=== PATIENT | male | born 1940 | race Caucasian/White ===

== ENCOUNTER 2025-04-09 11:46 | Outpatient (REF) | payer MEDICARE, SELFPAY ==
[2025-04-09 13:23] LABS: MANUAL DIFF FLAG NO
--- OUTSIDE RECORDS SUMMARY | 2025-04-09 13:31 | XMS_ITS | Data Portability ---
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 REVIEW OF PRIOR EXTERNAL NOTES/RESULTS, ORDERING OF TEST(S) CATEGORY 2. 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) MDM MODERATE MUST MEET 2 OUT OF 3 ELEMENTS: PROBLEMS, DATA OR RISK ELEMENT 1: PROBLEMS ADDRESSED 1 OR MORE CHRONIC ILLNESS WITH EXACERBATION OR 2 OR MORE STABLE CHRONIC ILLNESSES OR 1 UNDIAGNOSED NEW PROBLEM OR 1 ACUTE ILLNESS W/SYMPTOMS OR 1 ACUTE COMPLICATED INJURY ELEMENT 2: DATA MUST MEET 1 OF 3 CATEGORIES CATEGORY 1: REVIEW OF PRIOR EXTERNAL NOTES, REVIEW OF RESULTS, ORDERING OF EACH TEST, ASSESSMENT REQUIRING INDEPENDENT HISTORIAN OR CATEGORY 2: INDEPENDENT INTERPRETATION OF TESTS BY ANOTHER PHYSICIAN OR SPECIALIST OR CATEGORY 3: DISCUSSION OF MGT OR TEST INTERPRETATION W/EXTERNAL PHYSICIAN OR SPECIALIST ELEMENT 3: RISK RISK OF COMPLICATIONS AND/OR MORBIDITY OR MORTALITY OF PATIENT MANAGEMENT PROVIDER MUST THOROUGHLY DOCUMENT EACH ELEMENT THAT IS COVERED Not available 04/09/2025 11:30:43 Plan of Treatment Reminders Order Date Submit Date Provider Last Modified By Organization Details Last Modified Time Details Appointments Pre-Op 2024 11:00A M DR IBARRA Not available Not available Not available Lab CMP, serum or plasma 2024 025 [facility], [address] [place] [address], [id number], 04/09/2025 11:39:30 lipid panel, serum 2024 025 [facility], [address] [place] [address], [id number], 04/09/2025 11:39:30 CBC w/ auto diff 2024 025 [facility], [address] [place] [address], [id number], 04/09/2025 11:39:30 PSA, serum or plasma 2024 025 [facility], [address] [place] [address], [id number], 04/09/2025 11:39:30 TSH, serum or plasma 2024 025 [facility], [address] [place] [address], [address], 04/09/2025 11:39:30 CMP, serum or plasma 2023 024 [facility], [address] [place] [address], [id number], 11/22/2023 11:18:31 CBC 2023 024 [facility], [address] [place] [address], [address], 11/22/2023 11:18:30 lipid panel, serum 2023 024 [facility], [address] [place] [address], [place], [address], 11/22/2023 11:18:30 TSH + free T4, serum 2023 024 [facility], [address] [place] [address], [place], [address], 11/22/2023 11:18:31 Referral None recorded. Procedures None recorded. Surgeries None recorded. Imaging XR, lumbosacr al spine, 2 or 3 view 2022 023 [email or web address] Not available 09/11/2023 08:37:20 Medication Orders tramadol 50 mg tablet 2023 024 [email or web address] [facility] #[id number], [address], [place], [id number], 04/09/2025 10:56:48 meloxicam 15 mg tablet 2023 024 [facility] #55391, [address], [place], [id number], 04/06/2024 14:14:36 Medrol (Yovanny) 4 mg tablets in a dose pack 2022 024 [facility] #60149, [address], [place], [id number], 07/17/2024 09:30:36 tizanidin e 2 mg tablet 2022 024 [facility] #51940, [address], [place], [id number], 07/17/2024 09:30:48 Patient TargetsNo targets recorded. Patient Instructions Encounter Date Encounter Id Patient Instructions Last Modified By Organization Details Last Modified Time 04/09/2025 [id number] hypothyroidism: care instructions Not available 04/09/2025 11:38:05 Reason for Referral None Reported. Results Created Date Observation Date Name Description Value Unit Range Abnormal Flag Note LastModifiedBy Organization Detail LastModifiedTime 08/28/20 23 08/28/2023 XR, lumbo sacra l spine , 2 or 3 view No observ ation record ed. [email or web address] [address], [address], 09/04/2023 09:07:16 10/18/20 23 10/14/2023 MRI, lumba r spine , w/o contr ast No observ ation record ed. [facility] [address] [place] [address], [address], 10/20/2023 16:24:11 03/06/20 24 03/05/2024 XR, hip, unila teral , 2 or 3 view No observ ation record ed. [facility] [address] [place] [address], [address], 03/10/2024 20:59:05 Result Notes None recorded. Problems Name Problem SNOMED Code Status Onset Date Resolution Date Notes Provider Name and Address Organization Details Recorded Time [place] us polyp of colon 739188799 Active 2016 due for repeat scope 2021 Not Available [facility] 13:18:10 Acute conjuncti vitis 32500760 Active 2017 Not Available [facility] 13:18:10 Prostate specific antigen above reference range 339048483 Active 2019 Not Available [facility] 13:18:10 Lumbago with sciatica 047634438 Active 2022 CECI DONOHUE [address] [place], [address], [facility] 3 12:05:04 Intractab le low back pain 52493044881 365302 Active 2022 Refugio Ibarra DO [address] [place], [address], [place] [facility] 3 22:56:46 Degenerat daina lumbar spinal stenosis 592516575 Active 2022 Refugio Ibarra DO [address] [place] [address], [address], [facility] 3 16:24:56 Pain of left hip joint 54120912098 9100 Active 2023 Refugio Ibarra, DO [address] [place] [address], [address], [facility] 4 13:55:31 Osteoarth ritis of left hip joint 13805170916 9108 Active 2023 Refugio Ibarra, DO [address] [place] [address], [address], [facility] 4 20:59:58 Impacted cerumen of bilateral ears 60324977411 48314 Active 2023 CECI DONOHUE [address] [place] [address], [address], [facility] 4 14:54:04 Essential hypertens ion 81888647 Active 2017 Not Available [facility] 13:18:10 Hypothyro idism 43332390 Active 2017 Not Available [facility] 13:18:10 Hyperlipi demia 08298464 Active 2017 Not Available [facility] 13:18:10 Diverticu losis of sigmoid colon 547861327 Active 2017 Not Available [facility] 13:18:10 Benign prostatic hyperplas ia 200269503 Active 2017 Not Available [facility] 13:18:10 Basal cell carcinoma of skin 468428977 Active 2017 Not Available [facility] 13:18:10 Gout 62159472 Active 2017 Not Available [facility] 13:18:10 Problem Notes None recorded. Procedures Surgical History Date Name Laterality Status Provider Name and Address Organization Details Recorded Time 4 Cerumen Removal completed CECI DONOHUE [address] [place] [address], [phone], [facility] 06/21/2024 14:53:53 Imaging Results None recorded. Procedure Notes None recorded. Medical Equipment None Reported. Allergies Allergen ID Allergen Name Allergen Category Reaction Reaction Severity Criticality Documentation Date Start Date Code Code System Note Provider Name and Address Organization Details Recorded Time 997 ciproflox acin medicatio n Not available Not available Not available 02/19/2018 2551 RxNorm [facility]fec [facility] 8 10:53:37 Medications Name Sig Start Date Stop Date Status Note LastModified by Organization Details LastModified Time levothyroxi ne sodium 100 mcg tabs 07/01 completed Not Available Not Available Not Available tamsulosin hydrochlori de 0.4 mg caps 07/01 completed Not Available Not Available Not Available losartan 50 mg tablet TAKE 1 TABLET BY MOUTH EVERY DAY 03/24 completed Not Available Not Available Not Available cyclobenzap rine 10 mg tablet Take 1 tablet every day by oral route at bedtime. 10/05 completed Not Available Not Available Not Available prednisone 10 mg tablet take 4 tabs x 2 days, take 3 tabs x 2 days, take 2 tabs x 2 days, take 1 tab x 2 days 04/06 completed Not Available Not Available Not Available doxycycline hyclate 100 mg capsule TAKE 1 CAPSULE BY MOUTH TWICE DAILY FOR 5 DAYS WITH FOOD AND WATER 07/17 completed Not Available Not Available Not Available tizanidine 2 mg tablet TAKE 1 TABLET BY MOUTH TWICE DAILY FOR 7 DAYS NEEDED 07/17 completed Not Available Not Available Not Available valacyclovi r 1 gram tablet 06/27 completed Not Available Not Available Not Available meloxicam 15 mg tablet TAKE 1 TABLET BY MOUTH EVERY DAY NEEDED 04/06 completed Not Available Not Available Not Available lisinopril 20 mg tablet 04/23 completed Not Available Not Available Not Available fluorouraci l 5 % topical cream 10/05 completed Not Available Not Available Not Available acetaminoph en 300 mg-codeine 30 mg tablet Take 1 tablet every 6 hours by oral route as needed for 7 days. 01/13 completed Not Available Not Available Not Available prochlorper azine maleate 10 mg tablet 02/19 completed Not Available Not Available Not Available ciprofloxac in 500 mg tablet 02/19 completed Not Available Not Available Not Available hydrocodone 10 mg-acetamin ophen 325 mg tablet TAKE 1 TABLET BY MOUTH FOUR TIMES DAILY FOR 7 DAYS NEEDED 04/08 completed Not Available Not Available Not Available tramadol 50 mg tablet TAKE 1 TABLET BY MOUTH THREE TIMES DAILY NEEDED 04/09 completed Not Available Not Available Not Available TobraDex 0.3 %-0.1 % eye ointment APPLY A SMALL AMOUNT INTO THE CONJUNCTI TALYA SAC(S) IN AFFECTED EYE(S) BY OPHTHALMI C ROUTE 2 TIMES PER DAY 10/02 completed Not Available Not Available Not Available levothyroxi ne 100 mcg tablet TAKE 1 TABLET BY MOUTH EVERY MORNING ON AN EMPTY STOMACH active Not Available Not Available No t Available levothyroxi ne 88 mcg tablet 02/19 completed Not Available Not Available Not Available gentamicin 0.3 % eye drops INSTILL 1 DROP INTO AFFECTED EYES BY OPHTHALMI C ROUTE EVERY 4 HOURS 07/04 completed Not Available Not Available Not Available tamsulosin 0.4 mg capsule TAKE 1 CAPSULE BY MOUTH EVERY DAY active Not Available Not Available No t Available Tylenol 500 mg tablet Take 2 tablets every 6 hours by oral route. active Not Available Not Available No t Available cephalexin 500 mg capsule 02/19 completed Not Available Not Available Not Available simvastatin 20 mg tablet TAKE 1 TABLET BY MOUTH EVERY DAY active Not Available Not Available No t Available indomethaci n 50 mg capsule 07/04 completed Not Available Not Available Not Available mupirocin 2 % topical ointment APPLY TOPICALLY IN EACH NOSTRIL TWICE DAILY FOR 5 DAYS 08/25 completed Not Available Not Available Not Available methylpredn isolone 4 mg tablets in a dose pack FOLLOW PACKAGE DIRECTION S 07/17 completed Not Available Not Available Not Available losartan 50 mg-hydrochl orothiazide 12.5 mg tablet TAKE 1 TABLET BY MOUTH EVERY DAY active Not Available Not Available No t Available colchicine 0.6 mg tablet TAKE 2 TABLETS BY MOUTH ONCE THEN TAKE 1 TABLET 1 HOUR LATER, PRN GOUT FLARE 10/02 completed Not Available Not Available Not Available celecoxib 100 mg capsule 08/25 completed Not Available Not Available Not Available ketoconazol e 2 % topical cream APPLY TO THE AFFECTED AREA(S) BY TOPICAL ROUTE twice DAILY 07/22 completed Not Available Not Available Not Available fluticasone propionate 50 mcg/actuati on nasal spray,suspe nsion active Not Available Not Available Not Available naproxen 500 mg tablet 10/05 completed Not Available Not Available Not Available amoxicillin 875 mg-melo m clavulanate 125 mg tablet 02/19 completed Not Available Not Available Not Available oxycodone 5 mg tablet TAKE 1 TABLET BY MOUTH EVERY 6 HOURS NEEDED 05/31 completed Not Available Not Available Not Available neomycin 3.5 mg/g-polymy david B 10,000 unit/g-dexa meth 0.1 % eye oint APPLY 1 THIN LAYER IN LEFT EYE THREE TIMES DAILY 04/09 completed Not Available Not Available Not Available biotin 10,000mcg One tablet once a day 04/23 completed Not Available Not Available Not Available Tylenol prn 03/30 completed Not Available Not Available Not Available Centrum Silver active Not Available Not Available Not Available ProAir HFA 90 mcg/actuati on aerosol inhaler Inhale 2 puffs every 4 hours by inhalatio n route as needed for 16 days. 10/02 completed Not Available Not Available Not Available diclofenac 1 % topical gel APPLY 2 GRAMS TOPICALLY TO THE AFFECTED AREA FOUR TIMES DAILY 10/05 completed Not Available Not Available Not Available GaviLyte-G 236 gram-22.74 gram-6.74 gram-5.86 gram oral solution 02/19 completed Not Available Not Available Not Available Shingrix (PF) 50 mcg/0.5 mL intramuscul ar suspension, kit 01/13 completed Not Available Not Available Not Available Fluzone High-Dose Quad 2019- (PF) 240 mcg/0.7 mL IM syringe ADM 0.7ML IM UTD 03/24 completed Not Available Not Available Not Available BinaxNOW COVID-19 Ag Self Test kit TEST DIRECTED TODAY 12/12 completed Not Available Not Available Not Available Vitals Date Recorded Body height Body mass index (BMI) Body weight Oxygen saturation Oxygen saturation in Arterial blood by Pulse oximetry Heart rate Systolic blood pressure Diastolic blood pressure Provider Name and Address Organization Details Last Updated DateTime 5 172.09 cm 27.5 kg/m2 67229.1 9 g 6 % 6 % 64 /min 122 mm[Hg] 78 mm[Hg] Feilcia Mccordbenjamin [facility] 5 11:01:10 Date Recorded Body height Body mass index (BMI) Body weight Heart rate Oxygen saturation Oxygen saturation in Arterial blood by Pulse oximetry Systolic blood pressure Diastolic blood pressure Provider Name and Address Organization Details Last Updated DateTime 4 172.09 cm 26.7 kg/m2 19680.0 7 g 62 /min 98 % 98 % 118 mm[Hg] 78 mm[Hg] Joshua Hammer [facility] 4 09:31:38 Date Recorded Body height Body mass index (BMI) Body weight Heart rate Oxygen saturation Oxygen saturation in Arterial blood by Pulse oximetry Systolic blood pressure Diastolic blood pressure Provider Name and Address Organization Details Last Updated DateTime 3 172.09 cm 25.4 kg/m2 78759.3 3 g 70 /min 95 % 95 % 112 mm[Hg] 64 mm[Hg] Nemo Guerita [facility] 3 11:53:31 Social History Question Answer Notes LastModified by [email or web address] Details LastModified Time Tobacco Smoking Status Former Smoker Not Available [facility] 09/01/2020 03:36:24 What Is Your Level Of Caffeine Consumption? Occasional 1 Cup Coffee Per Day [id number] Information not available 09/01/2020 What Was The Date Of Your Most Recent Tobacco Screening? 04/09/2025 [email or web address] Information not available 04/09/2025 How Many Years Have You Smoked Tobacco? 8 [id number] Information not available 09/01/2020 Sex: Unknown Functional Status Question Answer Note LastModified by [email or web address] Details LastModified Time Do you or have you ever used any other forms of tobacco or nicotine? No Information not available 03/30/2022 What is your level of alcohol consumption? Occasional [id number] Information not available 09/01/2020 What is your exercise level? Moderate walking daily [id number] Information not available 09/01/2020 Mental Status None recorded. Family History Nothing Reported. Medical History No medical history recorded. Immunizations Vaccine Type Date Status Note Provider Nam e and Address Organization Details Recorded Time Influenza, split virus, quadrivalent, preservative 10/08/20 21 completed Refugio Ibarra, [address] [place], [address], [facility] 08/07/2021 21:17:21 Influenza, split virus, quadrivalent, preservative 07/27/20 18 completed Refugio Ibarra, [address] [place], [address], [facility] 07/28/2018 21:54:03 COVID-19, mRNA, LNP-S, PF, 100 mcg/0.5mL dose or 50 mcg/0.25mL dose 09/06/20 21 [facility] 14:21:32 COVID-19, mRNA, LNP-S, PF, 100 mcg/0.5mL dose or 50 mcg/0.25mL dose 02/08/20 22 [facility] 03/30/2022 14:21:49 Influenza, split virus, quadrivalent, preservative 08/07/20 22 completed HARSH QUIROZ, [place] [address] [place], [address], [facility] 08/09/2022 13:05:45 COVID-19, mRNA, LNP-S, PF, 50 mcg/0.5 mL dose 08/04/20 22 completed Julia Cobian [facility] 12/12/2022 08:01:44 Influenza, split virus, quadrivalent, preservative 08/16/20 19 [facility] 08/17/2019 16:25:33 Pneumococcal conjugate PCV 13 07/30/20 16 completed Cathryn Mukund [facility] [address] [place], [address], [facility] 2018 12:12:02 zoster live 11/13/19 11 completed Cathryn Mukund [facility] [address] [place], [address], [facility] 2018 12:14:45 Tdap 08/21/20 12 completed NACHO Roberto [address] [place], [address], [facility] 2018 12:14:11 pneumococcal polysaccharide PPV23 08/06/20 09 completed NACHO Roberto [address] [place], [address], [facility] 2018 12:14:29 COVID-19, mRNA, LNP-S, PF, 100 mcg/0.5mL dose or 50 mcg/0.25mL dose 12/10/19 21 completed Clarissa vasquez [facility] 03/23/2021 08:52:26 COVID-19, mRNA, LNP-S, PF, 100 mcg/0.5mL dose or 50 mcg/0.25mL dose 01/08/20 21 [facility]/23/2021 08:52:31 Past Encounters Encounter ID Performer Location Encounter Start Date Encounter Closed Date Diagnosis/Indication Diagnosis SNOMED-CT Code Diagnosis ICD10 Code Diagnosis Note [id number] Refugio Ibarra [facility] [address] [place] [address],[place] [address] 02/19/2018 10:43:35 02/19/2018 11:33:11 Hypothyroidism 69383455 E03.9 last checked 18 - WNL Gout 39844729 M10.9 Essential hypertension 61022516 I10 on lisinopril , which can elevate uric acid. will d/c and add alexa hahn [id number] Refugio Ibarra [facility] [address] [place] [address],[place] [address] 04/23/2018 09:21:04 04/23/2018 09:44:22 Hypothyroidism 25432257 E03.9 last checked 18 - WNL Gout 12261861 M10.9 no flares since last visit if uric acid severely elevated will consider adding allopurino l if normal, no further action Essential hypertension 36808198 I10 will controlled on losartan [id number] Refugio Ibarra [facility] [address] [facility],[place] [address] 2018 11:46:47 2018 14:53:52 Essential hypertension 95991720 I10 will controlled on losartan Hypothyroidism 13713171 E03.9 last checked 01/14 - WN has f/u for this 06/2018 Bacterial conjunctivitis 125866029 H10.9 Body mass index 25-29 - overweight 362950844 Z68.27 in setting of normal waist circumfere nce [id number] Refugio Ibarra [facility] [address] [facility], [place] [address] 07/04/2018 08:58:07 07/04/2018 11:37:47 Hypothyroidism 98570276 E03.9 will check tsh in next visit Essential hypertension 57789819 I10 excellent thus far Hyperlipidemia 12771487 E78.00 will order fbw Acute conjunctivitis 537 27046 H10.33 will change gent to pred combo [id number] Refugio Ibarra [facility] [address] [place] [address],[place] [address] 07/09/2018 10:50:52 07/09/2018 11:44:28 Sensation of irritation of eye proper 412523775 H57.8 [id number] Refugio Ibarra [facility] Internal [address],[place] [address] 10/02/2018 09:20:28 10/02/2018 12:01:54 Adult health examination 616331022 Z00.00 Active or passive immunization 445054646 Z23 Essential hypertension 34845287 I10 excellent thus far Tinea pedis 0733033 B35. 3 [id number] Refugio Ibarra [facility] [address] [facility], [place] [address] 12/24/2018 11:39:29 12/24/2018 13:22:14 Low back pain 564602136 M54.5 increase Aleve to 2 tabs BID Trigger fi nger of left hand [id number] 0817672 M65.30 Trigger fi nger of right hand [id number] 6811891 M65.30 [id number] Refugio Ibarra [facility] [address] [facility],[place] [address] 04/10/2019 09:49:45 04/10/2019 10:30:28 Essential hypertension 72448598 I10 excellent thus far Hypothyroidism 75595230 E03.9 will check tsh in next visit Hyperlipidemia 54989533 E78.00 will order fbw Numbness of foot 7489772 00 R20.0 ? if this is tarsal [place] [id number] Refugio Ibarra [facility] [address] [facility],[place] [address] 07/22/2019 13:45:18 07/22/2019 14:30:38 Thoracic back pain 508240643 M54.6 no sx of uti he does have h/o kidney stones on imaging, but no history of passing stones quit smoking 45 years ago after smoking approx 9 years pain isnt reproduced with palpation Essential hypertension 02593155 I10 will controlled on losartan Hypothyroidism 69035117 E03.9 labs normal 04/17 [id number] Refugio Ibarra [facility] [address] [facility],[place] [address] 01/14/2020 09:48:36 01/14/2020 10:17:17 Adult health examination 735498237 Z00.00 Active or passive immunization 741276634 Z23 Hypothyroidism 12269917 E03.9 will check tsh in next visit [id number] Refugio Ibarra [facility] [address] [facility],[place] [address] 07/01/2020 09:10:42 07/01/2020 10:01:20 Essential hypertension 44690072 I10 excellent thus far but having some leg edema Hyperlipidemia 51594276 E78.00 will order fbw Hypothyroidism 87112840 E03.9 will check tsh in next visit Osteoarthr itis of joint of bilateral hands 8805031679 99914 M19.041 will try this med for arthritis on a as needed basis if good day dont take [id number] Refugio Ibarra [facility] [address] [facility],[place] [address] 10/12/2020 08:44:41 10/12/2020 10:27:32 Essential hypertension 27904497 I10 excellent thus far but he will be purchasing a new machine to check at home will call if any elevations persist Hypothyroidism 13354150 E03.9 will check tsh in next visit as his last was excellent Hyperlipidemia 48146239 E78.00 LDL cholestero l is 63 Gout 64677029 M10.9 has been quiet will cont current course uric acid is wnl last lab no outbreaks Prostate s pecific antigen above reference range 947897608 R97.20 has raised psa even more to 19 he will discuss with the urologidst in october 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 and that he will need to consider doing something about this with the urologist [id number] Refugio Ibarra [facility] [address] [facility], [place] [address] 03/24/2021 09:27:07 03/24/2021 10:26:10 Hypothyroidism 74183072 E03.9 will check tsh in next visit as his last was excellent Hyperlipidemia 19150341 E78.00 LDL cholestero l is 63 Essential hypertension 55395162 I10 excellent thus far but he will be purchasing a new machine to check at home will call if any elevations persist Pain in right knee [id number] M25.561 will set up rxr and ortho Idiopathic peripheral neuropathy [id number] G60.9 will set up neuro and NCT [id number] Refugio Ibarra [facility] [address] [facility], [place] [address] 10/05/2021 11:10:47 10/05/2021 16:22:37 Thoracic back pain [id number] M54.6 continue with APAP and take tramadol instead of ibuwill fu with XR Fall W19.XXXA will fu with XR to r/o acute fracture [id number] Refugio Ibarra [facility] Internal Medicine [address] [facility], [place] [address] 03/30/2022 09:53:07 03/30/2022 10:53:27 Active or passive immunization [id number] Z23 patient advised of vaccines due (tdap, shingles) Adult [facility] th examination 476092932 Z00.00 will have lab etc ordered etc Advance care planning 71 9428601 Z71.89 done [id number] Refugio Ibarra [facility] Internal Medicine [address] [place] [address] 12/12/2022 09:35:38 12/12/2022 12:14:03 Pre-surgery evaluation [id number] Z01.818 The patient was seen in the office today for pre-op evaluation . All medical conditions on patient's problem list were addressed and are currently stable, no interventi on needed at this time. Based on history and physical performed, the patient is cleared for surgery. Essential hypertension 37868905 I10 BP is excellentw ell-contro lled on medication [id number] Refugio Ibarra [facility] [address] [place] [address] 05/31/2023 09:45:45 05/31/2023 15:37:42 Active or passive immunization 873164383 Z23 patient advised of vaccines due (tdap, shingles) Adult heal th examination 556367272 Z00.00 will have lab etc ordered etc Essential hypertension 16361585 I10 excellent thus far but he will be purchasing a new machine to check at home will call if any elevations persist Hyperlipidemia 97802672 E78.00 LDL cholestero l is 63 Hypothyroidism 71188341 E03.9 will check tsh in next visit as his last was excellent [id number] Refugio Ibarra [facility] Internal [facility] [address] [place] [address] 08/25/2023 11:45:36 08/25/2023 13:20:35 Lumbago with sciatica 787847476 M54.41 will set up with medrol and low dose tizanidine [id number] Refugio Ibarra [facility] Internal [facility] [address] [place] [address] 7 11/22/2023 08:57:23 11/22/2023 11:30:51 Essential hypertension 45298224 I10 excellent thus far but he will be purchasing a new machine to check at home will call if any elevations persist Hypothyroidism 28282589 E03.9 will check tsh in next visit as his last was excellent Degenerati ve lumbar spinal stenosis 893528905 M48.061 had been seen by neurosurg not a candidate for any procedurew ill try the meloxicam prn and have him do pioneer spine for poss epidurals [id number] Refugio Oneal Kaiden [facility] Internal [facility] [address] [facility] [address] [address] 06/21/2024 14:06:00 06/21/2024 15:25:30 Impacted cerumen of bilateral ears [id number] 177334 H61.23 resolved [id number] Refugio Jacintoelisabet [facility] [address] [facility] [address] [address] 07/17/2024 09:20:32 07/17/2024 10:01:31 Hyperlipidemia 71640728 E78.00 LDL cholestero l is 63 Hypothyroidism 15933547 E03.9 will check tsh in next visit as his last was excellent Active or passive immunization 763878708 Z23 patient advised of vaccines due (tdap, shingles) Adult heal th examination 720502251 Z00.01 will have lab etc ordered etc Degenerati ve lumbar spinal stenosis 148269533 M48.061 had been seen by neurosurg not a candidate for any procedurew ill try the meloxicam prn and have him do pioneer spine for poss epidurals Pain of le ft hip joint [id number] 03451 M25.552 WILL REFER TO [facility] [id number] Refugio Ibarra [facility] [address] [facility] [address] [address] 04/09/2025 10:48:12 04/09/2025 12:01:03 Depression screening [id number] Z13.31 neg Essential hypertension 77809883 I10 excellent thus far but he will be purchasing a new machine to check at home will call if any elevations persist Hyperlipidemia 43570017 E78.00 LDL cholestero l is 63 Hypothyroidism 23811370 E03.9 will check tsh in next visit as his last was excellent Health Concerns Section Related Observation LastModified by Organization Haile ls LastModified Time None Recorded Concern Status LastModified by Organization Details LastModified Time None Recorded Advance Directives Directive None Recorded Payers Encounter Date Sequence Insurance Name Policy Number Policy Hauser Covered Member ID Hauser Member ID Guarantor Name 08/25/2023 2 [employer] (MEDICARE SUPPLEMENT) Handy Grady [id number] Handy Grady 08/25/2023 1 MEDICARE B-[place]: [facility] Handy Grady [id number] Handy Grady 11/22/2023 2 [employer] (MEDICARE SUPPLEMENT) Handy Grady [id number] Handy Grady 11/22/2023 1 MEDICARE [place]: [facility] [employer] Handy Grady [id number] Handy Grady 06/21/2024 2 [employer] (MEDICARE SUPPLEMENT) Handy Grady [id number] Handy Grady 06/21/2024 1 [place]: [facility] Handy Grady [id number] Handy Grady 07/17/2024 2 [employer] (MEDICARE SUPPLEMENT) Handy Grady [id number] Handy Grady 07/17/2024 1 MEDICARE B-[place]: [facility] [employer] Handy Grady [id number] Handy Grady 04/09/2025 2 [employer] (MEDICARE SUPPLEMENT) Handy Grady [id number] Handy Grady 04/09/2025 1 [place]IC[place]: [facility] Handy Grady [id number] Handy Grady Notes Date Note Type Note Provider Name and Address Organization Details Recorded Time 08/25/20 text/htm l c/o right buttock the patient denies any trauma or injury the patient reports that he had a right knee replacement in Decemberhas been having right buttock pain intermittently for awhile did have XR of thoracic not lumbaragreed for XR lumbar will start on medrol and tizanidine low dose CECI DONOHUE [address] [place] [address], [place], [address], [facility] 08/25/2023 12:12:59 11/22/19 text/htm l patient is evaluated via tele/video assessment per patient consentduring current pandemichad been seen by neurosurgery who stated that he is not a candidate for surgeryhas been seen by HOUSTON mejia who has been helping himand is getting into a exercisetaking advil at times Refugio Ibarra [address] [place], [address], [facility] Internal [facility] 11/22/2023 11:17:35 06/21/20 24 text/htm l c/o hearing loss patient has a bilateral impactionnoticed recently, within the past week his hearing was acutely worsenedhad to turn the volume up on the TV a lot patient consented to lavageperformed by KR and RT tolerated well by patienthearing restored to baseline CECI DONOHUE [address] [place], [address], [facility] 06/21/2024 14:55:33 07/17/20 text/htm l Annual WellnessReported bypatient.Diet and Nutrition:healthy diet Fracture Risk:no history of fractures; no recent explained fracture; no sudden unexplained fractures; no previous musculoskeletal injuries Physical Activity:exercises on a regular basis; recent increase in physical activity; good physical condition Additional Lifestyle Factors:no tobacco use; no alcohol intake; stopped drinking alcohol Depression Risk:never feels sad, empty, or tearful; no loss of interest in activities; no significant changes in weight; no sleep disturbances or insomnia; no agitation; no loss of energy; no feelings of worthlessness or guilt; no thoughts of suicide; no history of depression; no history of mood disorders Hearing:no loss of hearing Vision:no vision problems Refugio Ibarra [address] [place], [address], [facility] 07/17/2024 09:54:57 04/09/20 text/htm l Care Management - Acquired HypothyroidismReported bypatient.Medication Education:understands administration; understands effect of concurrent medications; understands missed doses; understands consequences of noncompliance Associated Symptoms:no abnormal weight gain; no tiredness; no dry skin; no cold intolerance; no constipation; no diarrhea; no goiterCare Management - HyperlipidemiaReported bypatient.Control:usually well controlled; improving; at goal Complications:no coronary artery disease; no heart attack; no cardiovascular disease; no pancreatitis; no strokeCare Management - HypertensionReported bypatient.Self Care:not under emotional stress Severity:symptoms are improving; does not interfere with daily activities Associated Symptoms:no dizziness; no lightheadedness; no chest pain; no shortness of breath; no palpitations; no edema; no calf muscle cramps; no blurred vision; no confusion; no headaches; no fatiguePre-OpReported bypatient.Risk Factorsno cognitive impairment; no functional impairment; no malnutrition; no frailty; able to climb a flight of stairs (exercise capacity>4 METS); no obstructive sleep apnea; non-smoker; no alcohol misuse; no illicit drug use; no chronic cardiopulmonary condition; not obese Anesthesia hx:no hx of anesthesia complications; no allergy to anesthetic agents; no family history of anesthesia complications Functional Ability:able to walk up stairs; able to perform heavy work around the house; no difficulty walking up hills; able to walk 4 mph was orig scheduled for pre op but surgery is put off until nextyear so this is just a rechkhas been doing well with no major complaints except his left hip obviously bothering him but his signif other is having and issue and needs surgery so he delayed his Refugio Ibarra, DO [address] [facility], [place], [address], [facility] 04/09/2025 11:44:14
[2025-04-09 13:48] LABS: Basophils Absolute Auto 0.1 X10*3/uL (0.0-0.2); Basophils Percent Auto 0.9 % (0-2); Eosinophils Absolute Auto 0.9 X10*3/uL (0.0-0.4); Eosinophils Percent Auto 10.1 % (0-4); Hematocrit 48.3 % (42.0-52.0); Hemoglobin 16.4 g/dl (14.0-18.0); Imm Gran Abs Auto 0.03 X10*3/uL (0.00-0.03); Imm Gran Pct Auto 0.3 % (0.0-0.4); Lymphocytes Absolute Auto 1.3 X10*3/uL (1.2-4.9); Mean Corpuscular Hemoglobin 31.5 pg (27.0-33.0); Mean Corpuscular Volume 92.7 fL (80.0-98.0); Mean Platelet Volume 10.3 fL (9.4-12.4); Monocytes Absolute Auto 0.7 X10*3/uL (0.1-1.2); Monocytes Percent Auto 7.7 % (2-11); Neutrophils Absolute Auto 5.8 x10*3/uL (2.0-8.3); Platelet Count 223 X10*3/uL (160-400); Red Blood Count 5.21 X10*6/uL (4.60-5.80); Red Cell Distribution Width 12.7 % (11.0-16.0); White Blood Count 8.7 X10*3/uL (4.8-10.8)
[2025-04-09 14:19] LABS: Alanine Aminotransferase 34 U/L (0-40); Albumin Level 4.8 g/dL (3.5-5.0); Alkaline Phosphatase 87 U/L (39-117); Anion Gap 14 (12-20); Aspartate Amino Transferase 40 U/L (5-37); Bilirubin Total 0.6 mg/dL (0.0-1.0); Blood Urea Nitrogen 16 mg/dL (9-16); Calcium 10.2 mg/dL (8.4-10.2); Carbon Dioxide 26 mmol/L (22-29); Chloride 102 mmol/L (96-108); Cholesterol 133 mg/dL (<200); Estimated Glomerular Filt Rate > 60; Glucose Random 79 mg/dL (60-115); HDL Cholesterol 47 mg/dL (>40); LDL Cholesterol Calculated 49 mg/dL (<100); Potassium 4.1 mmol/L (3.3-5.1); Sodium 138 mmol/L (135-145); Total Protein 7.6 g/dL (6.5-8.0); Triglycerides 188 mg/dL (<150)
[2025-04-09 14:24] LABS: Thyroid Stimulating Hormone 9.07 uIU/mL (0.32-4.0)
== END 2025-04-09 11:47 | disposition home or self-care (01) ==
LOC: HO.MANLDS 11:46
PROVIDERS: Visit Provider Internal Medicine
DX: I10 Essential (primary) hypertension (principal); E03.9 Hypothyroidism, unspecified
CPT/HCPCS: 36415; 80053; 80061; 84153; 84443; 85025